=== PATIENT | male | born 1995 | race African-American/Black ===

== ENCOUNTER 2018-02-25 02:13 | Emergency (ER) | payer SELFPAY ==
[~2018-02-25] VITALS: Ht 188 cm; Wt 75.9 kg
[2018-02-25 02:15] VITALS: BP 146/95
[2018-02-25] MEDS ORDERED: AZITHROMYCIN 500 MG TABLET PO ONE (03:00)
[2018-02-25] MEDS ORDERED: CEFTRIAXONE 250 MG IM ONE (03:00)
[2018-02-25] MEDS ORDERED: CEFTRIAXONE 250 MG ONE (03:01)
[2018-02-25] MEDS ORDERED: AZITHROMYCIN 250 MG TABLET ONE (03:01)
[2018-02-25 03:34] LABS: CULTURE INDICATED? YES; MICROSCOPIC INDICATED
== END 2018-02-25 04:10 | disposition home or self-care (01) ==
LOC: ED 04:00
DX: Z20.2 Contact with and (suspected) exposure to infections with a predominantly sexual mode of transmission (principal)
CPT/HCPCS: 81001; 87086; 87491; 87591; 96372; 99284; J0696